=== PATIENT | male | born 1955 | race Caucasian/White ===

== ENCOUNTER 2020-12-22 11:00 | Day surgery (SDC) | payer MEDICARE ==
[~2020-12-22] VITALS: Ht 175.3 cm; Wt 107.5 kg
[2020-12-22] VITALS (12 sets, daily range): BP systolic 114–135; BP diastolic 60–88; PULSE 77–84; TEMP 98.4
[2020-12-22 11:54] LABS: HEMATOCRIT 43.7 % (42.0-52.0); HEMOGLOBIN 14.8 g/dl (13.5-18.0); MEAN CELL VOLUME 84 fl (80.0-100.0); MEAN CORPUSCULAR HEMOGLOBIN 29 pg (27.0-31.0); MEAN CORPUSCULAR HGB CONC 34 g/dl (33.0-37.0); MEAN PLATELET VOLUME 11.4 fl (7.4-10.4); PLATELET COUNT 256 K/mm3 (130-400); RED BLOOD COUNT 5.18 M/mm3 (4.20-5.60); REDCELL DISTRIBUTION WIDTH-CV 14.8 % (11.5-14.5)
[2020-12-22] MEDS ORDERED: WELLBUTRIN SR150 M1 PO (12:07)
[2020-12-22] MEDS ORDERED: ASPIRIN E.C. 8181 MG PO (12:07)
[2020-12-22] MEDS ORDERED: HYGROTON 2525 MG/TAB PO (12:09)
[2020-12-22] MEDS ORDERED: CYMBALTA 30MG30 MG PO (12:10)
[2020-12-22] MEDS ORDERED: IRON TABLETS325 MG PO (12:10)
[2020-12-22] MEDS ORDERED: HUMALOG PEN100 U/ML SQ (12:11)
[2020-12-22] MEDS ORDERED: ZESTRIL 5MG5 MG PO (12:12)
[2020-12-22] MEDS ORDERED: LANTUS SOLOS100 U/ML SQ (12:12)
[2020-12-22] MEDS ORDERED: TOPROL XL 25MG25 MG PO (12:12)
[2020-12-22] MEDS ORDERED: NITRO-DUR0.2 MG/PAT TD (12:13)
[2020-12-22] MEDS ORDERED: LYRICA200 MG PO (12:14)
[2020-12-22 12:36] LABS: CALCIUM 8.3 mg/dL (8.4-10.2); CREATININE, serum 1.41 (0.66-1.25); POTASSIUM 3.8 mmol/L (3.4-5.0)
[2020-12-22 13:02] LABS: INR 0.9 (0.8-3.0); PROTHROMBIN TIME 9.6 SECONDS (9.7-12.8)
[2020-12-22 13:04] LABS: PARTIAL THROMBOPLASTIN TIME 28.6 SECONDS (26.0-37.0)
--- NOTE | 2020-12-22 14:04 | NUR ---
SEE MERGE FOR ALL MEDICATION ADMINISTRATION TIMES, INTRA AND POST SEDATION ASSESSMENTS
--- NOTE | 2020-12-22 14:48 | NUR ---
Report from Jesenia HARDING. Right groin dressing CD&I, good pedal pulses and soft to palapation. VSS. Call light within reach
--- NOTE | 2020-12-22 17:00 | NUR ---
REPORT FROM DONTE HARDING AT 1630 FOR CARE OF PT, PT CON'T TO REST SUPINE/[place] HAS NO C/O, SITE TO RIGHT GROIN IS SOFT WITH DRESSING CLEAN AND DRY, CALL LIGHT IN REACH,SNACKS ON LUNCH
--- NOTE | 2020-12-22 18:50 | NUR ---
PT HOB ELVEVATED, THEN SAT ON SIDE OF BED AND STOOD, SITE REMAINS THE SAME. REVIEWED DISCHARGE INST. WITH PT ON APPT. AND TIME, ALSO ON NO MED CHANGES, OR ADDITIONS FROM LIST. REVIEWED CARE OF RIGHT GROIN AND ACTIVITY RESTRICTIONS WITH VERBAL UNDERSTANDING.
--- NOTE | 2020-12-22 19:20 | NUR ---
IV D'CD INTACT, PT SITS ON BED, DRESSED WAITS FOR RIDE TO COME
--- NOTE | 2020-12-22 20:01 | NUR ---
PT DISCHARGED VIA W/C TO CAR
== END 2020-12-22 20:01 | disposition home or self-care (01) ==
LOC: COL.CAR 11:00
PROVIDERS: Internal Medicine Cardiovascular Disease
DX: I25.10 Atherosclerotic heart disease of native coronary artery without angina pectoris (principal); I42.9 Cardiomyopathy, unspecified; I50.9 Heart failure, unspecified; I11.0 Hypertensive heart disease with heart failure; I73.9 Peripheral vascular disease, unspecified; I99.8 Other disorder of circulatory system; E78.5 Hyperlipidemia, unspecified; Z20.822 Contact with and (suspected) exposure to COVID-19; Z95.1 Presence of aortocoronary bypass graft; Z79.899 Other long term (current) drug therapy
CPT/HCPCS: C1760; C1769; C1894; J1644; J2250; J3010